=== PATIENT | female | born 1975 | race Caucasian/White ===

== ENCOUNTER 2019-06-09 19:51 | Inpatient (IN) | payer SELFPAY ==
[2019-06-09] MEDS ORDERED: Ketorolac Tromethamine 30 MG/ML VIAL ONE (21:00)
[2019-06-09] MEDS ORDERED: Fentanyl 100 MCG/2 ML VIAL ONE (21:00)
--- NOTE | 2019-06-09 22:06 | PDOC.FPRHP ---
- History of Present Illness Chief Complaint: Abdominal Pain History of Present Illness: Pt 44 yo F with history of CAD and Hx of recurrent PNApresents to the ED from [place] ED for evaluation of abdominal pain. She said she has been struggling with abdominal pain since January of last year. She says she was admitted at that time for IV Abx. She says she still had the pain after discharge. She has just been tolerating the pain, but over the last 5 days the pain has dramatically worsened to the point that she went to the ED to in [place] because she has been vomiting profusely and has had decreased in PO intake due to pain. She says she was able to keep a [place] down today, but she has been vomiting 50% of her food up when she eats over the past 5 days. Pt has not had a PCP for the past 7 years since she lost her insurance. She pays out of pocket for her inhaler. She said she has never had a colonoscopy or been seen by GI. She had a backend python developer, but she has not followed up with him since she lost insurance. ED Course: In [place], they gave her Morphine and gave her a dose of Zosyn. She came to the ED her and received fentnyl and Toradol. - Allergies/Adverse Reactions Allergies Allergy/AdvReac Type Severity Reaction Status Date / Time bee venom protein (honey bee) Allergy Verified 06/10/19 01:57 - Home Medications Medication Instructions Recorded Confirmed Type Albuterol Sulfate [Proair HFA] 2 puff INH Q6HR PRN 06/10/19 06/10/19 History - History PMHx: CAD, Lung Problems, Hx of Recurrent PNA PSHx: Cholecystectomy (2 years ago), Cath (7 years ago), Lung Biopsy (6 years ago) FHx: Mom and Dad in 40s due to CAD Social: Smokes <1/2 PPD now, was up to 2 PPD, smoked for 32 years, would like to quit for grandson. No alcohol or recreational drugs. - Review of Systems General: reports: weight/appetite/sleep changes. denies: fever/chills Eyes: denies: vision changes ENT: denies: nasal congestion, rhinorrhea Respiratory: reports: cough, shortness of breath. denies: congestion Cardiovascular: denies: chest pain, edema Gastrointestinal: reports: nausea, vomiting. denies: diarrhea, constipation, abdominal pain Genitourinary: denies: dysuria Skin: denies: rashes, lesions Musculoskeletal: denies: pain, stiffness Neurological: denies: numbness, weakness - Vital signs BP: 106/56 HR: 82 RR: 16 Tmax: 98.6 Pox: 97% on RA Wt: 83.01 kg - Physical Exam Constitutional: NAD, awake, alert and oriented HEENT: normocephalic and atraumatic, PERRLA, EOMI, normal nasal mucosa, MMM, oropharynx clear Neck: supple, FROM Heart: RRR, normal S1/S2, no murmurs/rubs/gallops, pulses present, no edema Lungs: CTAB, no respiratory distress, good air movement, no wheezing -Abdomen: Generalized TTP, Ricardo's positive, positive rebound, heel tap test positive Musculoskeletal: normal structure, normal tone, ROM grossly normal Neurological: no focal deficit, CN II-XII intact Skin: no rash/lesions Heme/Lymphatic: no unusual bruising or bleeding, no purpura, no petechia Psychiatric: normal mood and affect FMR H&P: Results - Radiology Interpretation CT scan - abdomen Status: report reviewed by me (Proximal Sigmoid Diverticultitis with no free air , Ground glass densities stable from 2013- likely Chronic ILD- eosinophilic vs hypersensitivity vs interstitial PNA) FMR H&P: A/P - Problem List (1) Diverticulitis Current Visit: Yes Status: Acute Code(s): K57.92 - DVTRCLI OF INTEST, PART UNSP, W/O PERF OR ABSCESS W/O BLEED (2) Sepsis Current Visit: Yes Status: Acute Code(s): A41.9 - SEPSIS, UNSPECIFIED ORGANISM (3) CAD (coronary artery disease) Current Visit: Yes Status: Acute Code(s): I25.10 - ATHSCL HEART DISEASE OF [place] CORONARY ARTERY W/O ANG PCTRS (4) COPD (chronic obstructive pulmonary disease) Current Visit: Yes Status: Acute - Plan Pt 44 yo F with history of CAD and Hx of recurrent PNA presents to the ED from [place] ED for evaluation of abdominal pain. 1. Sepsis 2/2 Diverticulitis Abominal Pain * CT: Proximal Sigmoid Diverticultitis with no free air, Ground glass densities stable from 2013- likely Chronic ILD- eosinophilic vs hypersensitivity vs interstitial PNA * LA was 1.3 * WBC: 13.3, Pt tachycardic at times during interview. * Given Zosyn in [place] * Will Continue * Morphine and Toradol for pain * LR @ 100 cc/h * Will keep NPO 2. CAD Trop < 0.01 * Will give ASA 3. Possible COPD vs Interstitial Lung Disease. Uses Albuterol inhaler * Smokes for 32 years * Has chronic cough * CT: Proximal Sigmoid Diverticultitis with no free air, Ground glass densities stable from 2012- likely Chronic ILD- eosinophilic vs hypersensitivity vs interstitial PNA Code Status: Full Diet: Regular Activity: As Tolerated DVT PPx: SCDs, Lovenox GI PPx: Famotidine Dispo: Surg inpt, LOS > 48H. Will need to monitor for improvement of pain symptoms. FMR H&P: Upper Level - Pertinent history I was present with the internal recruiter, Dr. Olamide Albarado, PGY1 during the evaluation. I have reviewed the above HPI and made edits as needed. See above for details. - Pertinent findings Pt appears to be in some distress due to pain. Abdomen: pt diffusely tender to mild palpation in all 4 quadrants. No rebound noted. Ricardo and McBurney negative. Pt tender with heel tap. No masses or hernias noted. Cardio: Tachycardic, Regular rhythm, no murmurs or gallops. Resp: CTA-B, no wheezes or crackles. Ext: Moves all ext. - Plan Date/Time: 06/09/192203 IReyes, PGY-3 have evaluated this patient and agree with findings/ plan as outlined by internal recruiter resident. Pertinent changes/additions are listed here. I have made edits to the above plan. See above for detailed plan. At this time we are admitting pt for sepsis 2/2 diverticulitis. Pt at times would have episodes of tachycardia and has elevation in WBC. Pt unable to really tolerate PO at this time. Reports getting nauseated and throwing up. Will start tx with zosyn at this time. Will give prn morphine and venita toradol for pain. Will keep NPO at this time. Will check blood and urine cx as pt met sepsis criteria. Will venita duonebs prn for underlying COPD. Addendum - Attending - Attending Attestation Date/Time: 06/09/192303 I personally evaluated the patient and discussed the management with Dr. Albarado/ Justina I agree with the History, Examination, Assessment and Plan documented above with any addition or exceptions noted below. 44 yo WF PMH polysubstance abuse and COPD. Presents with 5 day hx diffuse abdominal pain, N/V, anorexia, and subjective fever. Vital remarkable for elevated pulse in the 100s. Exam remarkable for diffuse abdominal tenderness with focal areas of increased tenderness in LLQ and epigastric region. Positive rovsing and heel tap. Labs show WBC 13.3F. EKG negative. CT abd/pel shows sigmoid diveticulitis. Admit for sepsis 2/2 acute diverticulitis. continue zosyn. pain control with VENITA toradol and PRN morphine. Continue IV fluids advance diet as tolerated. Inpatient, medical, > 2 midnights.
[2019-06-09] MEDS ORDERED: Senokot S 8.6-50 MG TAB PO PRN (23:07)
[2019-06-09] MEDS ORDERED: Ondansetron ODT 4 MG TAB PO PRN (23:07)
[2019-06-09] MEDS ORDERED: Acetaminophen 650 MG Suppository PR PRN (23:07)
[2019-06-09] MEDS ORDERED: Acetaminophen 325 MG TAB PO PRN (23:07)
[2019-06-10] MEDS: Lactated Ringer's 1,000 ML IV SCH ×3 (00:32→20:46)
[2019-06-10] MEDS: Morphine 2 MG/ML SYRINGE SLOW IVP PRN ×6 (00:33→21:46)
[2019-06-10] MEDS: Ketorolac Tromethamine 30 MG/ML VIAL IVP SCH ×2 (00:34→05:15)
[2019-06-10] MEDS: Nicotine 14 MG PATCH TD SCH (00:34)
[2019-06-10] MEDS: Piperacillin/Tazobactam 3.375 GM in Sodium Chloride 0.9% 100 ML IVPB SCH ×2 (00:34→05:15)
[2019-06-10 01:18] VITALS: BMI 36.1
[2019-06-10] MEDS ORDERED: Promethazine HCl 25 MG/ML VIAL IM/IV PRN (04:45)
[2019-06-10 04:48] LABS: #Basophils 0.1 thou/uL (0.0-0.2); #Eosinphils 0.1 thou/uL (0.0-0.7); #Lymphocytes 2.6 thou/uL (1.20-3.40); #Monocytes 0.5 thou/uL (0.11-0.59); #Neutrophils 3.6 thou/uL (1.40-6.50); %Basophils 0.9 % (0.0-1.0); %Eosinophils 1.3 % (0.0-10.0); %Monocytes 7.7 % (0.0-10.0); Hemoglobin 13.1 g/dL (12.0-16.0); Mean Corpuscular HGB CONC 31.4 g/dL (32.0-36.0); Mean Corpuscular Hemoglobin 30.5 pg (27.0-31.0); Mean Corpuscular Volume 97.1 fL (78.0-98.0); Mean Platelet Volume 7.7 fL (7.4-10.4); Platelet Count 270 thou/uL (130-400); RBC Distribution Width 12.4 % (11.5-14.5); White Blood Cell (WBC) Count 6.8 thou/uL (4.8-10.8)
--- NOTE | 2019-06-10 06:32 | PDOC.FM ---
- Subjective Subjective: No events overnight. Pt did tolerate some PO intake overnight. States her abdominal pain is 4-6 this morning. No fevers or chills. - Objective Vital Signs & Weight: Vital Signs (12 hours) Temp Pulse Resp BP BP Pulse Ox 06/10/19 03:07 97.8 F 59 L 18 143/89 H 98 06/10/19 00:08 97.8 F 83 18 132/82 97 Weight Weight 83.915 kg I&O: 06/08/19 06/09/19 06/10/19 06:59 06:59 06:59 Intake Total 1400 Balance 1400 Result Diagrams: 06/10/19 04:26 06/10/19 07:47 Phys Exam - Physical Examination Constitutional: NAD HEENT: moist MMs, sclera anicteric Neck: full ROM Respiratory: no wheezing, clear to auscultation bilateral Cardiovascular: RRR, no significant murmur Gastrointestinal: soft, no distention, positive bowel sounds epigastric and LLQ abdominal tenderness, no peritoneal signs Musculoskeletal: no edema, pulses present Neurological: moves all 4 limbs Psychiatric: normal affect, A&O x 3 Skin: no rash, cap refill <2 seconds Dx/Plan (1) CAD (coronary artery disease) Code(s): I25.10 - ATHSCL HEART DISEASE OF [place] CORONARY ARTERY W/O ANG PCTRS Status: Acute (2) COPD (chronic obstructive pulmonary disease) Status: Acute (3) Diverticulitis Code(s): K57.92 - DVTRCLI OF INTEST, PART UNSP, W/O PERF OR ABSCESS W/O BLEED Status: Acute (4) Sepsis Code(s): A41.9 - SEPSIS, UNSPECIFIED ORGANISM Status: Acute - Plan Plan: Pt 44 yo F with history of CAD and Hx of recurrent PNA presents to the ED from [place] [facility] for evaluation of abdominal pain. Sepsis 2/2 Diverticulitis -CT: Proximal Sigmoid Diverticultitis with no free air -SIRS criteria resolved, vitals stable, no leukocytosis -IV zosyn -LR @ 100 cc/h -CL diet CAD -Trop < 0.01 -Will give ASA Possible COPD vs Interstitial Lung Disease. -Smokes for 32 years -Has chronic cough -CT: Ground glass densities stable from 2012- likely Chronic ILD- eosinophilic vs hypersensitivity vs interstitial PNA Code Status: Full Diet: CL Activity: As Tolerated DVT PPx: SCDs, Lovenox GI PPx: Famotidine Dispo: Surg inpt, LOS > 48H. Will need to monitor for improvement of pain symptoms. Addendum - Attending - Attending Attestation Date/Time: 06/10/19 4235 I personally evaluated the patient and discussed the management with Dr. Rubio. I agree with the History, Examination, Assessment and Plan documented above with any addition or exceptions noted below. Patient to Rocephin and Flagyl for diverticulitis. Bowel rest, clear liquids. IVF hydration. Pain control as needed. Labs and symptoms improved.
[2019-06-10] MEDS ORDERED: PROVENTIL INHALER 6.7 G (200 INHALATIONS) INH PRN (06:35)
[2019-06-10] MEDS: Ondansetron PF 4 MG/2 ML Vial IVP PRN (07:58)
[2019-06-10] MEDS: Famotidine 20 MG TAB PO SCH ×2 (07:58→20:45)
[2019-06-10] MEDS: Enoxaparin Sodium 40 MG/0.4 ML SYRINGE SC SCH (07:59)
[2019-06-10 08:16] LABS: ALT (SGPT) 23 U/L (8-55); AST (SGOT) 25 U/L (5-34); Albumin 3.4 g/dL (3.5-5.0); Alkaline Phosphatase 82 U/L (40-110); Anion Gap 12 mmol/L (10-20); BUN (Urea Nitrogen) 7 mg/dL (7.0-18.7); Bilirubin, Total 0.4 mg/dL (0.2-1.2); Calc. Creatinine Clearance 102 mL/min (70-130); Calcium 8.5 mg/dL (7.8-10.44); Carbon Dioxide 20 mmol/L (22-29); Chloride 110 mmol/L (98-107); Estimated GFR-MDRD 65; Globulin 3.2 g/dL (2.4-3.5); Glucose 99 mg/dL (70-105); Potassium 4.2 mmol/L (3.5-5.1); Protein, Total 6.6 g/dL (6.0-8.3); Sodium 138 mmol/L (136-145)
[2019-06-10] MEDS ORDERED: Aspirin 81 mg Enteric Coated Tablet PO SCH (09:00)
[2019-06-10] MEDS: Ketorolac Tromethamine 30 MG/ML VIAL IVP PRN (11:38)
[2019-06-10] MEDS: cefTRIAXone\\ROCEPHIN 2 GM in Sodium Chloride 0.9% 100 ML IVPB SCH (11:38)
[2019-06-10] MEDS: metroNIDAZOLE 500 MG in Premix Bag 1 BAG IVPB SCH ×2 (14:12→21:02)
[2019-06-11] MEDS: Nicotine 14 MG PATCH TD SCH ×2 (01:19→22:19)
[2019-06-11] MEDS: Morphine 2 MG/ML SYRINGE SLOW IVP PRN ×4 (03:13→18:05)
[2019-06-11] MEDS: Lactated Ringer's 1,000 ML IV SCH ×2 (05:07→15:54)
[2019-06-11] MEDS: metroNIDAZOLE 500 MG in Premix Bag 1 BAG IVPB SCH ×3 (05:07→22:19)
[2019-06-11] MEDS: Ketorolac Tromethamine 30 MG/ML VIAL IVP PRN ×3 (05:11→20:06)
--- NOTE | 2019-06-11 06:01 | PDOC.FM ---
- Subjective Subjective: Pt notes continued abdominal pain however notes an interval improvement from yesterday and on admission. Has tolerated her CL diet at this point. Had a couple BM's that were watery but not dark black or bloody. Denies any fevers or chills. - Objective Vital Signs & Weight: Vital Signs (12 hours) Temp Pulse Resp BP Pulse Ox 06/11/19 03:44 97.7 F 81 18 93 L 06/11/19 00:11 97.9 F 80 18 139/80 96 06/10/19 20:07 98.0 F 79 16 130/89 99 Weight Weight 83.915 kg I&O: 06/09/19 06/10/19 06/11/19 06:59 06:59 06:59 Intake Total 1400 2160 Balance 1400 2160 Result Diagrams: 06/11/19 06:12 06/11/19 07:23 Phys Exam - Physical Examination Constitutional: NAD HEENT: moist MMs, sclera anicteric Neck: full ROM Diffuse expiratory wheezing Cardiovascular: RRR, no significant murmur Gastrointestinal: soft LLQ and epigastric tenderness, no peritoneal signs Musculoskeletal: no edema, pulses present Neurological: moves all 4 limbs Skin: no rash, cap refill <2 seconds Dx/Plan (1) CAD (coronary artery disease) Code(s): I25.10 - ATHSCL HEART DISEASE OF [place] CORONARY ARTERY W/O ANG PCTRS Status: Acute (2) COPD (chronic obstructive pulmonary disease) Status: Acute (3) Diverticulitis Code(s): K57.92 - DVTRCLI OF INTEST, PART UNSP, W/O PERF OR ABSCESS W/O BLEED Status: Acute (4) Sepsis Code(s): A41.9 - SEPSIS, UNSPECIFIED ORGANISM Status: Acute - Plan Plan: Diverticulitis -SIRS criteria resolved, vitals stable, no leukocytosis -IV zosyn converted to flagyl and rocephin yesterday -LR @ 100 cc/h -CL diet until abdominal pain improved CAD -Trop < 0.01 -Will give ASA Possible COPD vs Interstitial Lung Disease. -Smokes for 32 years -Has chronic cough -CT: Ground glass densities stable from 2012- likely Chronic ILD- eosinophilic vs hypersensitivity vs interstitial PNA Code Status: Full Diet: CL Activity: As Tolerated DVT PPx: SCDs, Lovenox GI PPx: Famotidine Dispo: Surg inpt, LOS > 48H. Will need to monitor for improvement of pain symptoms, conversion to PO abx pending improvement. Addendum - Attending - Attending Attestation Date/Time: 06/11/19 7708 I personally evaluated the patient and discussed the management with Dr. Rubio. I agree with the History, Examination, Assessment and Plan documented above with any addition or exceptions noted below. Patient continues on treatment for diverticulitis. She is having pain, will add Bentyl. If can get pain controlled, will ADAT and hopeful discharge in the coming day or 2. Labs stable.
[2019-06-11 06:22] LABS: #Eosinphils 0.1 thou/uL (0.0-0.7); #Monocytes 0.5 thou/uL (0.11-0.59); #Neutrophils 4.8 thou/uL (1.40-6.50); %Basophils 0.6 % (0.0-1.0); %Eosinophils 1.8 % (0.0-10.0); %Lymphocytes 26.7 % (21.0-51.0); %Neutrophils 63.8 % (42.0-75.0); Hemoglobin 13.1 g/dL (12.0-16.0); Mean Corpuscular HGB CONC 33.2 g/dL (32.0-36.0); Mean Corpuscular Volume 96.6 fL (78.0-98.0); Mean Platelet Volume 7.5 fL (7.4-10.4); Platelet Count 266 thou/uL (130-400); RBC Distribution Width 12.2 % (11.5-14.5); White Blood Cell (WBC) Count 7.5 thou/uL (4.8-10.8)
[2019-06-11 07:57] LABS: ALT (SGPT) 32 U/L (8-55); AST (SGOT) 29 U/L (5-34); Albumin 3.1 g/dL (3.5-5.0); Alkaline Phosphatase 74 U/L (40-110); Anion Gap 14 mmol/L (10-20); BUN (Urea Nitrogen) 5 mg/dL (7.0-18.7); Bilirubin, Total 0.6 mg/dL (0.2-1.2); Calc. Creatinine Clearance 127 mL/min (70-130); Calcium 8.2 mg/dL (7.8-10.44); Carbon Dioxide 17 mmol/L (22-29); Chloride 110 mmol/L (98-107); Estimated GFR-MDRD 84; Glucose 86 mg/dL (70-105); Potassium 4.1 mmol/L (3.5-5.1); Protein, Total 6.1 g/dL (6.0-8.3); Sodium 137 mmol/L (136-145)
[2019-06-11] MEDS: Enoxaparin Sodium 40 MG/0.4 ML SYRINGE SC SCH (09:44)
[2019-06-11] MEDS: Famotidine 20 MG TAB PO SCH ×2 (09:44→20:06)
[2019-06-11] MEDS: cefTRIAXone\\ROCEPHIN 2 GM in Sodium Chloride 0.9% 100 ML IVPB SCH (12:24)
[2019-06-11] MEDS: hydrOXYzine 10 MG TAB PO SCH ×3 (12:24→22:20)
[2019-06-11] MEDS: Dicyclomine 10 MG CAP PO SCH ×3 (12:25→20:06)
[2019-06-11] MEDS: Ondansetron PF 4 MG/2 ML Vial IVP PRN (14:33)
[2019-06-11 23:46] VITALS: TEMP 98
[2019-06-12] MEDS: Lactated Ringer's 1,000 ML IV SCH ×2 (01:05→12:03)
[2019-06-12] MEDS: Ketorolac Tromethamine 30 MG/ML VIAL IVP PRN ×2 (03:15→08:59)
[2019-06-12] MEDS: metroNIDAZOLE 500 MG in Premix Bag 1 BAG IVPB SCH ×2 (05:04→14:07)
[2019-06-12] MEDS: hydrOXYzine 10 MG TAB PO SCH ×2 (05:04→12:55)
[2019-06-12] MEDS: Ondansetron PF 4 MG/2 ML Vial IVP PRN (06:14)
--- NOTE | 2019-06-12 06:34 | PDOC.FM ---
- Subjective Subjective: Continues to progress well. Has tolerated CL diet well. Abdominal pain improved since yesterday, feels bentyl has helped. Agrees with advancing diet as tolerated. Ambulating well without difficulty. - Objective Vital Signs & Weight: Vital Signs (12 hours) Temp Pulse Resp BP Pulse Ox 06/12/19 03:45 98.0 F 72 16 133/81 98 06/11/19 23:42 98.0 F 61 18 142/91 H 96 06/11/19 20:01 98.2 F 83 18 148/81 H 99 Weight Weight 83.915 kg I&O: 06/10/19 06/11/19 06/12/19 06:59 06:59 06:59 Intake Total 1400 2160 2360 Balance 1400 2160 2360 Result Diagrams: 06/11/19 06:12 06/11/19 07:23 Phys Exam - Physical Examination Constitutional: NAD HEENT: moist MMs Neck: full ROM Diffuse mild wheezing Cardiovascular: RRR, no significant murmur Gastrointestinal: soft Musculoskeletal: no edema, pulses present Neurological: moves all 4 limbs Psychiatric: normal affect, A&O x 3 Skin: no rash, cap refill <2 seconds Dx/Plan (1) CAD (coronary artery disease) Code(s): I25.10 - ATHSCL HEART DISEASE OF [place] CORONARY ARTERY W/O ANG PCTRS Status: Acute (2) COPD (chronic obstructive pulmonary disease) Status: Acute (3) Diverticulitis Code(s): K57.92 - DVTRCLI OF INTEST, PART UNSP, W/O PERF OR ABSCESS W/O BLEED Status: Acute (4) Sepsis Code(s): A41.9 - SEPSIS, UNSPECIFIED ORGANISM Status: Acute - Plan Plan: Diverticulitis -Flagyl and rocephin -LR @ 100 cc/h -Pain improving, will advance diet as tolerated today CAD -Trop < 0.01 -Will give ASA Possible COPD vs Interstitial Lung Disease. -Smokes for 32 years -Has chronic cough -CT: Ground glass densities stable from 2012- likely Chronic ILD- eosinophilic vs hypersensitivity vs interstitial PNA Code Status: Full Diet: CL-AAT Activity: As Tolerated DVT PPx: SCDs, Lovenox GI PPx: Famotidine Dispo: Surg inpt, LOS > 48H. Advancing diet for PO challenge. If tolerating with controlled abd pain expect DC with oral abx today or tomorrow Addendum - Attending - Attending Attestation Date/Time: 06/12/19 2820 I personally evaluated the patient and discussed the management with Dr. Rubio. I agree with the History, Examination, Assessment and Plan documented above with any addition or exceptions noted below. Patient improved. Her pain is more well controlled and she tolerated CLD well. Escalating diet today, continue pain control. If doing well, consider discharge later this afternoon.
[2019-06-12] MEDS: Famotidine 20 MG TAB PO SCH (08:58)
[2019-06-12] MEDS: Dicyclomine 10 MG CAP PO SCH ×2 (08:58→12:55)
[2019-06-12] MEDS: Enoxaparin Sodium 40 MG/0.4 ML SYRINGE SC SCH (08:58)
[2019-06-12] MEDS: cefTRIAXone\\ROCEPHIN 2 GM in Sodium Chloride 0.9% 100 ML IVPB SCH (12:52)
[2019-06-12 17:18] VITALS: BP 134/84
--- NOTE | 2019-06-12 23:37 | DIS ---
DATE OF ADMISSION: 06/09/2019 DATE OF DISCHARGE: 06/12/2019 ADMITTING ATTENDING: Tanmay Nathan MD DISCHARGE ATTENDING: Rober Engle MD RESIDENT: Evangelist Rubio DO CONSULTS: None. PROCEDURES PERFORMED: None. PRIMARY DIAGNOSES: Diverticulitis, sepsis. SECONDARY DIAGNOSES: Coronary artery disease, chronic obstructive pulmonary disease. DISCHARGE MEDICATIONS: 1. ProAir HFA 8.5 g two puffs q.6 hours p.r.n. 2. Omnicef 300 mg p.o. b.i.d. 3. Bentyl 10 mg p.o. q.i.d. 4. Metronidazole 500 mg p.o. q.8 hours. HISTORY OF PRESENT ILLNESS AND HOSPITAL COURSE: The patient is a 44-year-old female, who presented to the ED from [place] for evaluation of abdominal pain. The patient states that she has been feeling with this pain for several months intermittently. She notes being previously admitted for the pain which she believes was diagnosed with diverticulitis at which time she received IV antibiotics and was discharged home. The patient denied any fevers or chills, but noted nausea and vomiting with subsequent decreased p.o. intake and increase in her abdominal pain over the last five days. The patient has not seen a primary care physician in over seven years and has never had a colonoscopy. Imaging in [place] noted an area of diverticulitis at the distal descending colon and proximal sigmoid colon without signs of perforation. In the emergency department, the patient received morphine and Zosyn. The patient was subsequently admitted to medical floor for IV antibiotics and pain management. We transitioned the patient to metronidazole and Rocephin and started her on clear liquid diet. The patient received p.r.n. morphine for her pain, which we continually spaced out. We also gave her Bentyl for her complaints of cramping abdominal pain. For the next 3 days, the patient's diet was slowly advanced as tolerated to the point that the patient was tolerating full regular diet at the time of discharge. The patient was ambulating well, had not had any episodes of nausea or vomiting, pain was controlled, and sepsis had resolved on the day of discharge. DISCHARGE INSTRUCTIONS: 1. Location: Home. 2. Diet: Regular diet, slowly increasing from bland. 3. Activity: As tolerated. 4. Followup: Established PCP and follow up within the next seven days. Job ID: [id number]
== END 2019-06-12 16:15 | disposition home or self-care (01) | DRG 872 ==
LOC: ERS 19:51 → OBSVTOIN 22:01 → SURG A 22:01
PROVIDERS: ADMIT Family Medicine; ATTEND Family Medicine
DX: A41.9 Sepsis, unspecified organism (principal); K57.32 Diverticulitis of large intestine without perforation or abscess without bleeding; I25.10 Atherosclerotic heart disease of native coronary artery without angina pectoris; J44.9 Chronic obstructive pulmonary disease, unspecified; F19.10 Other psychoactive substance abuse, uncomplicated; Z87.891 Personal history of nicotine dependence; Z88.8 Allergy status to other drugs, medicaments and biological substances; Z91.030 Bee allergy status; Z87.01 Personal history of pneumonia (recurrent); Z90.49 Acquired absence of other specified parts of digestive tract
CPT/HCPCS: 36415; 80053; 85025; 96374; 96375; J0696; J1650; J1885; J2270; J2405; J2543; J3010; J3490; Q0162

== ENCOUNTER 2019-07-10 15:43 | Observation (INO) | payer SELFPAY ==
[2019-07-10] MEDS ORDERED: Ondansetron PF 4 MG/2 ML Vial ONE (19:11)
[2019-07-10 19:43] LABS: Bilirubin Negative (Negative); Blood, Urine Negative (Negative); Clarity Clear (Clear); Glucose, Urine (Dipstick) Normal (Negative); Leukocyte Negative Leu/uL (Negative); Nitrite Negative (Negative); Protein, Urine (Dipstick) 20 mg/dL (Neg-Trace); Urobilinogen 6 mg/dL (Less than 2)
[2019-07-10] MEDS ORDERED: cefTRIAXone\\ROCEPHIN 2 GM VIAL ONE (19:44)
[2019-07-10] MEDS ORDERED: Ketorolac Tromethamine 30 MG/ML VIAL ONE (19:44)
[2019-07-10] MEDS ORDERED: Morphine 4 MG/ML VIAL ONE (21:00)
[2019-07-10] MEDS ORDERED: metroNIDAZOLE 500 MG/100 ML BAG ONE (21:14)
--- NOTE | 2019-07-10 22:26 | PDOC.FPRHP ---
- History of Present Illness Chief Complaint: abdominal pain History of Present Illness: 44yo CF with h/o COPD, CAD and recent hospitalization for sepsis secondary diverticulitis presents for recurrence of similar sxs. Pt was discharged 06/12 with abx and bentyl at that time, states finished abx and ran out of bentyl. Sxs of lower abd pain described cramping, pressure as well as sharp stabbing pain in LUQ similar to previous episodes. States these sxs never resolved since discharge. Now has had 4d of vomiting and nausea with constipation, only having 1 BM, very hard and small, in past 4 days. No tolerating much PO 2/2 nausea. Denies any fever/chills, dysuria, cough, congestion, dyspnea, CP, melena, hematochezia. Was told to establish with PCP upon discharge but states she has not gone to any appointment but plans to f/u with [employer] [facility] in [place]. ED Course: Given Cipro, flagyl, rocephin, bentyl, morphine, NS. CT with diverticulitis. - Allergies/Adverse Reactions Allergies Allergy/AdvReac Type Severity Reaction Status Date / Time bee venom protein (honey bee) Allergy Verified 06/10/19 01:57 - Home Medications Medication Instructions Recorded Confirmed Type Albuterol Sulfate [Proair HFA] 2 puff INH Q6HR PRN 06/10/19 07/10/19 History Dicyclomine [Bentyl] 10 mg PO QID #12 cap 06/12/19 07/10/19 Rx - History PMHx: CAD, COPD, diverticulitis hospitalization May 2018 PSHx: Cholecystectomy (2 years ago), Cath (7 years ago), Lung Biopsy (6 years ago) FHx: Mom and Dad in 40s due to CAD Social: Smokes <1/2 PPD now, was up to 2 PPD, smoked for 32 years, would like to quit for grandson. No alcohol or recreational drugs. - Review of Systems General: reports: weight/appetite/sleep changes (decreased), fatigue. denies: fever/chills Eyes: denies: vision changes ENT: denies: nasal congestion, rhinorrhea Respiratory: denies: cough, congestion, shortness of breath Cardiovascular: denies: chest pain, palpitation, edema Gastrointestinal: reports: nausea, vomiting, constipation, abdominal pain. denies: diarrhea, GI bleeding Genitourinary: denies: incontinence, dysuria Skin: denies: rashes - Vital signs BP: 136/100 HR: 91 RR: 16 Tmax: 98.1 Pox: 98% on RA Wt: 79kg - Physical Exam Constitutional: NAD, awake, alert and oriented, well developed HEENT: PERRLA, EOMI, grossly normal vision, grossly normal hearing, MMM, other ( poor dentition.) Neck: supple, trachea midline Heart: RRR, normal S1/S2, no murmurs/rubs/gallops, pulses present, no edema Lungs: CTAB, no respiratory distress, good air movement, no rales/rhonchi, no wheezing Abdomen: soft, bowel sounds present, no masses/distention, other (no rebound or guarding. Mild BL lower abdominal pain. TTP to LUQ. Negative arndt, negative psoas. Rectal exam with good tone, no impaction or heavy stool burden in rectal vault.) Neurological: no focal deficit Psychiatric: normal mood and affect, good judgment and insight, intact recent and remote memory FMR H&P: Results - Labs Lab results: Urine Ketones Trace mg/dL (Negative) A 07/10/19 19:25 Urine Blood Negative (Negative) 07/10/19 19:25 Urine Nitrite Negative (Negative) 07/10/19 19:25 Ur Leukocyte Esterase Negative Nancy/uL (Negative) 07/10/19 19:25 - Radiology Interpretation CT scan - abdomen Status: report reviewed by me (diverticulitis, similar to previous CT's in May 2019, and Jan 2019) FMR H&P: A/P - Problem List (1) Constipation Status: Acute Code(s): K59.00 - CONSTIPATION, UNSPECIFIED (2) Diverticulitis Status: Chronic Code(s): K57.92 - DVTRCLI OF INTEST, PART UNSP, W/O PERF OR ABSCESS W/O BLEED (3) CAD (coronary artery disease) Status: Chronic Code(s): I25.10 - ATHSCL HEART DISEASE OF [place] CORONARY ARTERY W/O ANG PCTRS (4) COPD (chronic obstructive pulmonary disease) Status: Chronic - Plan 44yo CF with h/o COPD, CAD and recent hospitalization for sepsis secondary diverticulitis presents for recurrence of similar sxs. #Uncomplicated diverticulitis vs. segmental colitis and constipation - Recurrent symptoms from previous hospitalization - Given Cipro, rocephin, Flagyl in ED. Previous on rocephin and flagyl at past hospitalization. Will cont rocephin and flagyl - Rectal exam WNL. VSS, afebrile, no elevation in WBC. - Suspect contributing factor to pain is constipation; will place patient on bowel regimen - Patient has had same CT findings since 01/2019 which shows bowel wall thickening of sigmoid colon with multiple diverticuli and pericolonic inflammatory changes. Patient needs colonoscopy to further evaluate possibility of malignancy. - Will continue bentyl for spasms, toradol/ibuprofen for pain - Will start on maintenance IVF - Clear liquids; ADAT - Can consider mesalamine 800 mg 3x/day with increase to 1600 mg 3x/day if no improvement on antibiotics. If fail that therapy, can consider prednisone 40 mg qd x1 wk with gradual discontinuation of dose over 6 weeks. #COPD - Reported by patient, but no formal diagnosis - Duonebs PRN if indicated #CAD - Not currently on BB or ASA - Recommend further investigation to ensure patient on right medications PCP: CC - None Code: Full VTE: Lovenox Diet: Clears IVF: LR @ 100cc/hr Disposition/LOS: Admit to medical for diverticulitis. Expected LOS <48hrs. FMR H&P: Upper Level - Pertinent history 44 year old female recently discharged from our service with diagnosis of diverticulitis presents with a four day history of nausea, vomiting, difficulty tolerating PO intake. Patient states she has lower abdominal pain and cramping. She feels like she needs to have a BM but has been unable to do so. She states she had one small BM a few days ago, but it did not feel satisfactory. Patient states she has not been passing much gas. Patient also endorses LLQ pain similar to what she has experienced over the last several months. That pain is what brought her into the hospital a month ago. She states this pain is always present and tends to be sharp in nature and intermittent. The pain has never gone away, even since being treated for diverticulitis. Patient states she completed her course of antibiotics. She was also taking bentyl which was helping but she ran out a few days ago. She has been trying to establish with [facility] , but has been unsuccessful thus far. - Pertinent findings General: Alert and oriented x3. No acute distress. HEENT: MMM. Very poor dentition. Card: RRR, no murmur Resp: CTA bilaterally Abd: Mildly tender to palpation in RLQ and LLQ. No rebound or gaurding. Bowel sounds present. Skin: Warm and dry Ext: No cyanosis or edema. - Plan Date/Time: 07/10/19 [id number] I, Ashia Zuniga, have evaluated this patient and agree with findings/plan as outlined by risk management intern resident. Pertinent changes/additions are listed here. Uncomplicated diverticulitis vs. segmental colitis - Recurrent symptoms - Rocephin and Flagyl (07/10) - Suspect contributing factor to pain is constipation; will place patient on bowel regimen - Patient has had same CT findings since 01/2019 which shows bowel wall thickening of sigmoid colon with multiple diverticuli and pericolonic inflammatory changes. Patient needs colonoscopy to further evaluate possibility of malignancy. - Will continue bentyl for spasms, toradol/ibuprofen for pain - Will start on maintenance IVF - Clear liquids; ADAT - Can consider mesalamine 800 mg 3x/day with increase to 1600 mg 3x/day if no improvement on antibiotics. If fail that therapy, can consider prednisone 40 mg qd x1 wk with gradual discontinuation of dose over 6 weeks. COPD - Reported by patient, but no formal diagnosis - Duonebs PRN if indicated CAD - Not currently on BB or ASA - Recommend further investigation to ensure patient on right medications DVT PPX: Lovenox Code status: Full code Dispo: Obs on medical. Anticipate LOS <48 hours.
[2019-07-10] MEDS ORDERED: Acetaminophen 325 MG TAB PO PRN (23:25)
[2019-07-10] MEDS ORDERED: Ondansetron ODT 4 MG TAB PO PRN (23:25)
[2019-07-10] MEDS ORDERED: Lactated Ringer's 1,000 ML IV SCH (23:25)
[2019-07-10] MEDS ORDERED: Ondansetron PF 4 MG/2 ML Vial IVP PRN (23:25)
[2019-07-10] MEDS ORDERED: Milk Of Magnesia 30 ML UDCUP PO SCH (23:45)
[2019-07-10] MEDS ORDERED: Dicyclomine 10 MG/5 ML UDCUP PO SCH (23:45)
[2019-07-10] MEDS ORDERED: Enoxaparin Sodium 40 MG/0.4 ML SYRINGE SC SCH (23:45)
[2019-07-11 00:33] VITALS: BMI 29.0
[2019-07-11 00:34] VITALS: TEMP 98
[2019-07-11 04:24] VITALS: BP 131/80
[2019-07-11] MEDS ORDERED: Ketorolac Tromethamine 30 MG/ML VIAL IVP SCH ×2 (05:00→06:00)
[2019-07-11] MEDS ORDERED: metroNIDAZOLE 500 MG in Premix Bag 1 BAG IVPB SCH (06:00)
[2019-07-11] MEDS ORDERED: Famotidine 20 MG TAB PO SCH (09:00)
[2019-07-11] MEDS ORDERED: Polyethylene Glycol 3350 17 GM Packet PO SCH (09:00)
[2019-07-11] MEDS ORDERED: Famotidine/PF 20 mg/2ml Vial SLOW IVP SCH (09:00)
[2019-07-11] MEDS ORDERED: Dicyclomine 10 MG/5 ML UDCUP PO SCH (09:00)
[2019-07-11] MEDS ORDERED: Enoxaparin Sodium 40 MG/0.4 ML SYRINGE SC SCH (09:00)
--- NOTE | 2019-07-11 10:08 | DIS ---
DATE OF ADMISSION: 07/10/2019 DATE OF DISCHARGE: 07/11/2019 RESIDENT: Dr. Ramírez Albarado. ADMITTING ATTENDING: Dr. Duane Villa. DISCHARGE ATTENDING: Dr. Duane Villa. CONSULTS: None. PROCEDURES: Abdomen and pelvis CT on 07/10/2019 demonstrating evidence of sigmoid diverticulitis. Similar appearance was also seen on study on 06/09/2019 as well as a study on 02/16/2019. No adjacent free intraperitoneal gas seen and no fluid collection seen to suggest an abscess. All these findings are again likely attributable to diverticulitis. Gastroenteropathy consultation is suggested, given the persistence of bowel wall thickening on multiple studies. Presence of nonspecific ground-glass densities at each lung base, which have been present since the prior study in 2012. PRIMARY DIAGNOSES: 1. Uncomplicated diverticulitis versus segmental colitis. 2. Constipation. SECONDARY DIAGNOSES: 1. Chronic obstructive pulmonary disease. 2. Coronary artery disease. DISCHARGE MEDICATIONS: 1. ProAir 2 puffs q.6 hours p.r.n. 2. Bentyl 10 mg p.o. q.i.d. DISCONTINUED MEDICATIONS: None. HISTORY OF PRESENT ILLNESS AND HOSPITAL COURSE: The patient is a 44-year-old female with history of COPD and CAD with recent hospitalization for sepsis secondary to diverticulitis, who presented for recurrence of similar symptoms. The patient was discharged on 06/12 with antibiotics and Bentyl, for which she completed her entire course. The patient stated that her symptoms never completely resolved. She presented to the [facility] ED for 4 days of nausea, vomiting, constipation, passing only very small stools as well as lower abdominal cramping pain as well as left upper quadrant sharp stabbing pain similar to her previous diverticulitis episodes. She was subsequently transferred to [facility] for evaluation and management. In the ER, she was given Cipro, Flagyl, Rocephin, Bentyl, morphine, and normal saline. CT in [facility] initially showed diverticulitis similar to previous studies. The patient was then admitted to the floor for management of uncomplicated diverticulitis versus segmental colitis. The patient was given a bowel regimen and continued on Rocephin and Flagyl. Due to the patient's chronicity of her symptoms as chronic CT findings, there is a possibility that this patient could have segmental colitis instead of recurrent diverticulitis. The patient would likely benefit from a gastroenterology outpatient consultation and lower endoscopy. May also consider mesalamine 800 mg t.i.d. with an increase to 1600 mg t.i.d. if no improvement on antibiotics. If that therapy fails, may also consider prednisone 40 mg daily. The patient was given medicines for pain control and started on a clear diet with plans to advance as tolerated. The resident team was paged early in the morning on the first day of admission and told by the nursing staff that the patient was stating that she wished to leave against medical advice, the patient was stating that she wanted different medicines for pain control. Pain medications were ordered for patient, and Resident team was on way to evaluate the patient when the nurse called back stating that the charge nurse had talked to the patient and the patient had already left the building. The patient signed out against medical advice. Due to the patient leaving [facility], we were unable to continue her on the appropriate medications and provide the further workup as necessary. Nursing staff stated that they told the patient of the risks and harms of leaving against medical advice and stated the patient wanted to leave nevertheless. DISPOSITION: The patient left against medical advice. Job ID: [id number]
[2019-07-11] MEDS ORDERED: cefTRIAXone\\ROCEPHIN 1 GM in Sodium Chloride 0.9% 100 ML IVPB SCH (22:00)
== END 2019-07-11 05:02 | disposition left against medical advice (07) ==
LOC: ERS 15:43 → T4-B 21:29
PROVIDERS: ADMIT Family Medicine; ATTEND Family Medicine
DX: K59.00 Constipation, unspecified (principal); R10.30 Lower abdominal pain, unspecified; R10.12 Left upper quadrant pain; R11.2 Nausea with vomiting, unspecified; J44.9 Chronic obstructive pulmonary disease, unspecified; I25.10 Atherosclerotic heart disease of native coronary artery without angina pectoris; F17.210 Nicotine dependence, cigarettes, uncomplicated; I10 Essential (primary) hypertension; E66.9 Obesity, unspecified; Z68.34 Body mass index [BMI] 34.0-34.9, adult; Z53.29 Procedure and treatment not carried out because of patient's decision for other reasons; Z91.030 Bee allergy status
CPT/HCPCS: 81003; 94640; 96361; 96365; 96367; 96372; 96375; 96376; G0378; J0500; J0696; J0744; J1650; J1885; J2270; J2405; J7620

== ENCOUNTER 2021-06-28 14:58 | Outpatient (CLI) | payer BC | END 2021-06-28 14:59 | disposition home or self-care (01) | LOC: BICULT 14:58 | PROVIDERS: ATTEND Nurse Practitioner Family | DX: R05.9 Cough, unspecified (principal); R53.83 Other fatigue | CPT/HCPCS: 71046; 76536 ==

== ENCOUNTER 2023-08-17 23:59 | Inpatient (IN) | payer SELFPAY ==
[2023-08-18] MEDS ORDERED: Acetaminophen 650 MG Suppository PR PRN (02:20)
[2023-08-18] MEDS ORDERED: Ondansetron ODT 4 MG TAB PO PRN (02:20)
[2023-08-18] MEDS: Morphine 4 MG/ML VIAL SLOW IVP PRN ×2 (02:39→17:39)
[2023-08-18] MEDS: Piperacillin/Tazobactam 3.375 GM in Sodium Chloride 0.9% 100 ML IVPB SCH (02:40)
[2023-08-18] MEDS: Ondansetron PF 4 MG/2 ML Vial IVP PRN (02:40)
[2023-08-18] MEDS: Sodium Chloride 0.9% 1,000 ML IV SCH (02:41)
[2023-08-18 04:50] LABS: #Basophils Less than 0.03 10x3/uL (0.0-0.2); #Eosinphils Less than 0.03 10x3/uL (0.0-0.7); %Basophils 0.2 % (0.0-1.0); %Lymphocytes 21.8 % (21.0-51.0); %Monocytes 7.6 % (0.0-10.0); %Neutrophils 70.2 % (42.0-75.0); Hematocrit 40.2 % (36.0-47.0); Hemoglobin 13.7 g/dL (12.0-16.0); Mean Corpuscular HGB CONC 34.1 g/dL (32.0-36.0); Mean Corpuscular Volume 99.8 fL (78.0-98.0); Mean Platelet Volume 9.4 fL (7.4-10.4); Platelet Count 234 10x3/uL (130-400); Red Blood Cell (RBC) Count 4.03 mill/uL (4.20-5.40)
[2023-08-18 05:20] LABS: Anion Gap 13 mmol/L (10-20); BUN (Urea Nitrogen) 7 mg/dL (7.0-18.7); Calc. Creatinine Clearance 119 mL/min (70-130); Calcium 8.4 mg/dL (7.8-10.44); Carbon Dioxide 26 mmol/L (22-29); Chloride 101 mmol/L (98-107); Estimated GFR 107; Glucose 88 mg/dL (70-105); Potassium 3.4 mmol/L (3.5-5.1); Sodium 137 mmol/L (136-145)
[2023-08-18] MEDS ORDERED: Ipratropium/Albuterol 3 ML NEB NEB PRN (05:50)
[2023-08-18] MEDS: Acetaminophen 325 MG TAB PO PRN (09:01)
[2023-08-18] MEDS: Dicyclomine 10 MG CAP PO PRN (16:53)
[2023-08-18] MEDS: HYDROcodone/Acetaminophen 5/325 mg Tablet PO PRN (20:30)
[2023-08-19 07:19] LABS: #Basophils Less than 0.03 10x3/uL (0.0-0.2); #Eosinphils Less than 0.03 10x3/uL (0.0-0.7); %Basophils 0.1 % (0.0-1.0); %Lymphocytes 14.1 % (21.0-51.0); %Monocytes 5.5 % (0.0-10.0); %Neutrophils 79.9 % (42.0-75.0); Hematocrit 41.6 % (36.0-47.0); Mean Corpuscular HGB CONC 33.7 g/dL (32.0-36.0); Mean Corpuscular Hemoglobin 33.4 pg (27.0-31.0); Mean Corpuscular Volume 99.3 fL (78.0-98.0); Mean Platelet Volume 9.6 fL (7.4-10.4); Platelet Count 252 10x3/uL (130-400); Red Blood Cell (RBC) Count 4.19 mill/uL (4.20-5.40)
[2023-08-19 08:32] LABS: Anion Gap 15 mmol/L (10-20); BUN (Urea Nitrogen) 6 mg/dL (7.0-18.7); CRP (Inflammatory) 28.25 mg/dL (= or < 0.5); Calc. Creatinine Clearance 131 mL/min (70-130); Calcium 9.2 mg/dL (7.8-10.44); Carbon Dioxide 24 mmol/L (22-29); Chloride 101 mmol/L (98-107); Estimated GFR 109; Glucose 86 mg/dL (70-105); Potassium 3.9 mmol/L (3.5-5.1); Sodium 136 mmol/L (136-145)
[2023-08-19 08:39] VITALS: BP 171/102; TEMP 98.8
== END 2023-08-19 09:57 | disposition left against medical advice (07) | DRG 392 ==
LOC: SJJU 08-18 01:50 → OBSVTOIN 08-18 02:20
PROVIDERS: ADMIT Student in an Organized Health Care Education/Training Program; ATTEND Internal Medicine
DX: K57.20 Diverticulitis of large intestine with perforation and abscess without bleeding (principal); E11.9 Type 2 diabetes mellitus without complications; I10 Essential (primary) hypertension; J44.9 Chronic obstructive pulmonary disease, unspecified; F17.210 Nicotine dependence, cigarettes, uncomplicated; E66.9 Obesity, unspecified; Z91.048 Other nonmedicinal substance allergy status; Z79.51 Long term (current) use of inhaled steroids; Z79.899 Other long term (current) drug therapy; Z90.49 Acquired absence of other specified parts of digestive tract; Z98.890 Other specified postprocedural states; Z98.51 Tubal ligation status; Z68.33 Body mass index [BMI] 33.0-33.9, adult
CPT/HCPCS: 36415; 80048; 85025; 86140; J2270; J2405; J2543; J3490; J7050